=== PATIENT | male | born 2000 | race Caucasian/White ===

== ENCOUNTER 2019-01-22 13:28 | Emergency (ER) | payer SELFPAY ==
[~2019-01-22] VITALS: Ht 167.6 cm; Wt 62.1 kg
[2019-01-22 13:31] VITALS: BP 118/79; Ht 167.6 cm; Wt 62.1 kg
== END 2019-01-22 14:37 | disposition home or self-care (01) ==
LOC: ED 13:28
DX: S61.214A Laceration without foreign body of right ring finger without damage to nail, initial encounter (principal); S60.221A Contusion of right hand, initial encounter; W22.8XXA Striking against or struck by other objects, initial encounter; Y93.89 Activity, other specified; Y92.89 Other specified places as the place of occurrence of the external cause; Y99.8 Other external cause status
CPT/HCPCS: 90715; J2001; Q0092

== ENCOUNTER 2019-01-30 14:01 | Emergency (ER) | payer SELFPAY | END 2019-01-30 15:25 | disposition left against medical advice (07) | LOC: ED 14:01 | DX: Z53.21 Procedure and treatment not carried out due to patient leaving prior to being seen by health care provider (principal) ==